=== PATIENT | male | born 2000 | race Two or more races ===

== ENCOUNTER 2019-06-10 05:03 | Emergency (ER) | payer MEDICAID ==
[~2019-06-10] VITALS: Ht 177.8 cm; Wt 75.0 kg
[2019-06-10 06:55] VITALS: BP 120/65
== END 2019-06-10 06:56 | disposition home or self-care (01) ==
LOC: ER 05:03
DX: S50.862A Insect bite (nonvenomous) of left forearm, initial encounter (principal); W57.XXXA Bitten or stung by nonvenomous insect and other nonvenomous arthropods, initial encounter; Y93.89 Activity, other specified; Y92.89 Other specified places as the place of occurrence of the external cause; Y99.8 Other external cause status; F12.10 Cannabis abuse, uncomplicated
CPT/HCPCS: 99283